=== PATIENT | male | born 1985 | race Caucasian/White ===

== ENCOUNTER 2018-03-27 03:24 | Emergency (ER) | payer OTHER ==
[~2018-03-27] VITALS: Ht 170.2 cm; Wt 68.0 kg
[2018-03-27 03:40] VITALS: Ht 170.2 cm; Wt 68.0 kg
== END 2018-03-27 04:00 | disposition other institution (70) ==
LOC: ED 03:24
DX: Z02.89 Encounter for other administrative examinations (principal)